=== PATIENT | female | born 1985 | race Caucasian/White ===

== ENCOUNTER → 2017-03-07 | Outpatient (CLI) | payer BC ==
[~2017-03-07] MED LIST: ACET-1256 PO; ALBU1AER9 INH; BUSP-8 PO; CHOL1TAB46 PO; CLON1TAB3 PO; CYAN500S5 SC; FENT25DI2 TD; FLUO20CA35 PO; FURO-85 PO; HYDR25TA4 PO; LEVO150T9 PO; MAGN500T4 PO; METO100T14 PO; MICO1POW TOP; MICO2CRE48 TOP; OXYC20TA32 PO; TIZA1CAP2 PO; ZNTT/150 PO; [UNRECOGNIZED DRUG - CODE] PO
--- NOTE | 2017-03-07 10:29 | DIAGNOSTIC IMAGING REPORT ---
ABDOMEN COMPLETE (US) CLINICAL HISTORY: LEUKOCYTOSIS COMPARISON STUDY: CT scan dated 07/11/2012 FINDINGS: The pancreas appears sonographically normal. The gallbladder is surgically absent. There is increased hepatic echogenicity, most likely secondary to hepatic steatosis. No focal hepatic masses are visualized. There is no ductal dilatation. The common bile duct measures 5 mm. The spleen is mildly enlarged measuring 13 cm. The right kidney measures 11.4 cm in length. The left kidney measures 13.2 cm in length. No focal renal masses are visualized. There is no hydronephrosis. No abnormalities of the aorta are visualized. No abnormalities of the IVC are visualized. In the left lower quadrant, there are equivocal areas of bowel wall thickening. IMPRESSION: 1. Surgically absent gallbladder 2. Mild splenomegaly 3. Suspected hepatic steatosis 4. Equivocal areas of bowel wall thickening within the left lower quadrant. Electronically signed by: Sadiq Lee M.D. 03/07/2017 10:27 AM Dictated Date/Time: 03/07/2017 10:22 AM
== END | disposition home or self-care (01) ==
LOC: C.ULTR 09:47
PROVIDERS: ATTEND Internal Medicine Hematology & Oncology
DX: D72.829 Elevated white blood cell count, unspecified (principal); Z90.49 Acquired absence of other specified parts of digestive tract

== ENCOUNTER 2018-01-19 14:15 | Emergency (ER) | payer BC, OTHER ==
[~2018-01-19] VITALS: Ht 170.2 cm; Wt 142.0 kg
[~2018-01-19 14:15] MED LIST changes: -ACET-1256 PO; -CHOL1TAB46 PO; -CLON1TAB3 PO; -CYAN500S5 SC; -FLUO20CA35 PO; -HYDR25TA4 PO; -MAGN500T4 PO; +RANI150T85 PO; -ZNTT/150 PO
[2018-01-19 14:18] VITALS: TEMP 36.6; Ht 170.2 cm; Wt 142.0 kg
[2018-01-19] MEDS ORDERED: METHYLPREDNISOLONE 125 MG VIAL IV STA (15:10)
[2018-01-19] MEDS ORDERED: PROCHLORPERAZINE 5 MG/ML 2 ML VIAL IV STA (15:10)
[2018-01-19] MEDS: DiphenhydrAMINE HCL 50 MG/ML VIAL IV STA ×2 (15:10→15:48)
[2018-01-19] MEDS ORDERED: ONDANSETRON INJ 2 MG/ML 2 ML VIAL IV STA (15:10)
[2018-01-19] MEDS ORDERED: SODIUM CHLORIDE 0.9% 1000ML 1,000 ML IV STA (15:10)
[2018-01-19] MEDS ORDERED: CLON1TAB3 PO (15:45)
[2018-01-19] MEDS ORDERED: ACET-1256 PO (15:45)
[2018-01-19] MEDS ORDERED: FLUO20CA35 PO (15:45)
[2018-01-19] MEDS ORDERED: HYDR25TA4 PO (15:45)
[2018-01-19] MEDS ORDERED: CYAN500S5 PO (15:50)
[2018-01-19] MEDS ORDERED: CHOL1TAB46 PO (15:50)
[2018-01-19] MEDS ORDERED: MAGN500T4 PO (15:52)
[2018-01-19 15:59] LABS: BASO % 0.1 %; BASO ABS # 0.02 K/uL (0-0.2); EOS % 0.7 %; EOS ABS # 0.09 K/uL (0-0.5); HEMATOCRIT 41.5 % (37-47); HEMOGLOBIN 14.3 g/dL (12.0-16.0); IG# 0.06 K/uL (0.00-0.02); LYMPH % 29.6 %; LYMPH ABS # 3.99 K/uL (1.2-3.4); MEAN CELL VOLUME 88.9 fL (80-100); MEAN CORPUSCULAR HEMOGLOBIN 30.6 pg (25-34); MEAN CORPUSCULAR HGB CONC 34.5 g/dl (32-36); MEAN PLATELET VOLUME 9.4 fL (7.4-10.4); MONO % 5.5 %; MONO ABS # 0.74 K/uL (0.11-0.59); NEUT % 63.7 %; NEUT ABS # 8.57 K/uL (1.4-6.5); PLATELET COUNT 408 K/uL (130-400); RED CELL DISTRIBUTION WIDTH CV 13.2 % (11.5-14.5); RED CELL DISTRIBUTION WIDTH SD 42.8 fL (36.4-46.3); WHITE BLOOD COUNT 13.47 K/uL (4.8-10.8)
[2018-01-19] MEDS ORDERED: TRAM-10 PO (16:09)
[2018-01-19] MEDS ORDERED: MECL1TAB40 PO (16:09)
[2018-01-19] MEDS ORDERED: Cranberry PO (16:09)
[2018-01-19] MEDS ORDERED: RIZA5TAB10 PO (16:09)
[2018-01-19] MEDS ORDERED: NYSTCRE32 TOP (16:09)
[2018-01-19] MEDS ORDERED: LEVO112T4 PO (16:09)
[2018-01-19] MEDS ORDERED: ALBU18002 INH (16:09)
[2018-01-19] MEDS ORDERED: METO25TA56 PO (16:09)
[2018-01-19] MEDS ORDERED: CALC600T PO (16:09)
[2018-01-19] MEDS ORDERED: MISCCAP80 PO (16:09)
[2018-01-19] MEDS ORDERED: ACT15 PO (16:09)
[2018-01-19 16:21] LABS: CALCIUM 9.6 mg/dl (8.5-10.1); CREATININE 0.98 mg/dl (0.60-1.20); POTASSIUM 3.3 mmol/L (3.5-5.1)
[2018-01-19 16:23] LABS: TOTAL PROTEIN 8.8 gm/dl (6.4-8.2)
[2018-01-19] MEDS ORDERED: LORAZEPAM 2 MG/ML 1 ML VIAL IV STA (17:00)
--- NOTE | 2018-01-19 17:02 | EMERGENCY ROOM VISIT NOTE ---
ED Visit Note First contact with patient: 14:27 CHIEF COMPLAINT: Migraine headache 3 days HISTORY OF PRESENT ILLNESS: Patient is a 32-year-old white female with past medical history significant for migraines, among many other medical problems, who presents emergency department company by her for evaluation of a migraine 3 days. She reports a severe right-sided migraine with associated photo and phonophobia, nausea without vomiting and diarrhea. She states the pain radiates down her spine. She has tried her Maxalt and is on amitriptyline prophylactically without relief of her symptoms. She states the pain is progressively worsened, and she presently rates it an 8/10. She has a long- standing history of migraine headaches, and has been evaluated by neurology. Prior imaging studies including CT scans and MRIs have been normal. She has a history of anxiety and states that she has become a bit more anxious due to the pain and the duration of the migraine. She has IBS and reports nausea and diarrhea. She has not vomited, but does admit to poor oral intake. The patient has not been ill recently with any cold or upper respiratory symptoms or fever or chills. She denies any difficulty with balance, speech or coordination. No numbness, tingling or weakness of the extremities. No recent trauma to the head. She has a history of chronic neck and low back pain. This is not the worst migraine that she has ever experienced, but she does note that she has never had to go to the emergency department for migraine relief previously.. REVIEW OF SYSTEMS: Review of systems as per HPI. All other systems reviewed were negative. 10 systems reviewed. PMH: Electronic medical records are reviewed and summarized as above/below. See Problem List. SOCIAL HISTORY: Patient lives at home with her spouse. She is employed. Non- smoker. PHYSICAL EXAM: Vital Signs: Reviewed Nurse's notes. General Appearance: Patient is an uncomfortable appearing tearful, 32-year-old female who is awake and alert and laying in a darkened room with sunglasses on. Eyes: Pupils equal round reactive to light extraocular muscles are intact, no proptosis, mild photophobia ENT: Oropharynx is clear, mucous membranes are moist, tympanic membranes are clear bilaterally, no sinus or dental tenderness Neck: Supple, no cervical lymphadenopathy, no meningismus Heart: Regular rate and rhythm, S1 and S2 Lungs: Clear to auscultation bilaterally, no wheezes Rales or rhonchi, no increased work of breathing Abdomen: Soft nontender nondistended. Normal active bowel sounds. No rebound. No guarding. Back: No midline tenderness to palpation. : No CVA tenderness to palpation. Skin: Warm, no diaphoresis, no rashes. Extremities: No cyanosis, clubbing, or edema Neurologic: Patient is awake alert, and oriented x 3. Cranial nerves 2-12 are grossly intact. Motor 5 out of 5 strength bilateral upper extremities and lower extremities. No gross sensory deficits. Reflexes are 2+ throughout. EMERGENCY DEPARTMENT COURSE: The patient was seen and assessed as above. Her old records were reviewed. IV lock was initiated and laboratory studies were collected. She was medicated with a liter bolus of normal saline solution, Zofran 4 mg IV, Benadryl 50 mg IV, Compazine 10 mg IV, Solu-Medrol 125 mg IV. CBC with differential, CMP, Urine dip and test were collected. Laboratory studies noted a slightly elevated white count at 13,400, the patient does have a history of leukocytosis which has been evaluated by hematology. Electrolytes revealed a sodium of 135 and a potassium of 3.3, otherwise are unremarkable. Renal function is normal. LFTs are not elevated. Urine dip was clear and test was negative. On reassessment, the patient reported that her headache had improved, she rated it a 6/10, and states that this was manageable for her at home. She did report that she was feeling a little bit jittery and anxious, she suspected from the Benadryl. She was given Ativan 1 g IV. Supportive care measures discussed. The patient has a long-standing history of migraines and states that this feels similar. It is not the worst headache of her life. She has a benign neurologic exam. She does not have any findings to suspect meningitis or encephalitis. She is feeling improved with the IV hydration and medications. It was not felt that any neuroimaging was indicated at this time. She was encouraged to rest at home and continue her regular medications. The patient rated her headache a 5/10 at discharge. Her was driving. Differential includes: acute intracranial bleed, meningitis, encephalitis, mass or mass effect, sinusitis, infection, migraine, tumor, headache, temporal arteritis and carbon monoxide exposure. Medication reconciliation: I attest that I have personally reviewed the patient' s current medication list. Blood pressure screening: Patient was found to have a slightly elevated blood pressure due to circumstances, which did improve with analgesia. The patient is treated for hypertension. Patient was reviewed in the [facility] Prescription Drug Monitoring Program, she receives regular tramadol and clonazepam prescriptions. Problem List Medical Problems: (1) Asthma, Unspecified Status: Chronic (2) Depressive Disorder Nec Status: Chronic (3) Esophageal Reflux Status: Chronic (4) Fibromyalgia Status: Chronic (5) Head injury Status: Resolved (6) Hypertension Status: Chronic (7) Irritable Bowel Syndrome Status: Chronic (8) Lumbago Status: Chronic (9) Migraine Status: Chronic (10) Morbid Obesity Status: Chronic (11) Neck pain Status: Resolved (12) Orthostatic hypotension Status: Resolved (13) Panic Disorder Without Agoraphobia Status: Chronic (14) Pneumonia Status: Resolved (15) Polycystic Ovaries Status: Chronic (16) Syncope Status: Resolved Surgical Problems: (1) History of tonsillectomy Status: Resolved (2) Hx of cholecystectomy Status: Resolved Current/Historical Medications Scheduled Calcium Carbonate (Calcium 600), 600 MG PO BID Cholecalciferol (Vitamin D3), 5,000 INTER.UNIT PO DAILY Cyanocobalamin (Vitamin B-12), 500 MCG PO DAILY Fluoxetine (Prozac), 40 MG PO DAILY Hydrochlorothiazide (Hctz), 25 MG PO DAILY Levothyroxine Sodium (Levothyroxine Sodium), 112 MCG PO DAILY Magnesium Oxide (Mg Supplement (Magnesium), 500 MG PO DAILY Metoprolol Tartrate (Lopressor) (Lopressor), 12.5 MG PO BID Pioglitazone (Actos), 15 MG PO DAILY Probiotic Product (Probiotic), 1 CAP PO BID Ranitidine (Zantac), 150 MG PO BID [Cranberry], 25,000 UNITS PO DAILY Scheduled PRN Acetaminophen (Tylenol), 1,000 MG PO BID PRN for Pain Albuterol Sulfate (Proair Respiclick), 2 PUFFS INH QID PRN for SOB/Wheezing Clonazepam (Klonopin), 1 MG PO TID PRN for Anxiety Meclizine Hcl (Meclizine Hcl), 12.5 MG PO TID PRN for Dizziness or Vertigo Nystatin-Triamcinolone (Nystatin/Triamcinolone), 1 APPLN TOP UD PRN for Skin Inflammation Rizatriptan Benzoate (Maxalt), 5 MG PO UD PRN for Migraine Tizanidine Hcl (Tizanidine Hcl), 4 MG PO Q8 PRN for Migraine Tramadol (Ultram), 50 MG PO Q6H PRN for Back Pain Allergies Coded Allergies: Iodine (Verified Allergy, Severe, RESPIRATORY DISTRESS, 02/05/15) Latex (Verified Allergy, Intermediate, BLISTERS, 02/05/15) Penicillins (Verified Allergy, Mild, HIVES/RASH, 01/20/16) Sulfa Drugs (Verified Allergy, Mild, RASH, 02/05/15) Cefuroxime (Verified Allergy, Unknown, ITCHING, RASH, 02/05/15) Uncoded Allergies: CT CONTRAST (Allergy, Mild, ANAPHYLAXIS, 02/05/15) Vital Signs Date Time Temp Pulse Resp B/P (MAP) Pulse Ox O2 Delivery O2 Flow Rate FiO2 01/19/18 17:23 72 18 132/64 98 Room Air 01/19/18 15:46 73 18 149/90 98 Room Air 01/19/18 14:18 36.6 72 18 195/102 97 Laboratory Results 01/19/18 15:43 Red Blood Count 4.67, Mean Corpuscular Volume 88.9, Mean Corpuscular Hemoglobin 30.6, Mean Corpuscular Hemoglobin Concent 34.5, Mean Platelet Volume 9.4, Neutrophils (%) (Auto) 63.7, Lymphocytes (%) (Auto) 29.6, Monocytes (%) (Auto) 5.5, Eosinophils (%) (Auto) 0.7, Basophils (%) (Auto) 0.1, Neutrophils # (Auto) 8.57, Lymphocytes # (Auto) 3.99, Monocytes # (Auto) 0.74, Eosinophils # (Auto) 0.09, Basophils # (Auto) 0.02 01/19/18 15:43 Test 01/19/18 15:43 01/19/18 15:50 White Blood Count 13.47 K/uL (4.8-10.8) Red Blood Count 4.67 M/uL (4.2-5.4) Hemoglobin 14.3 g/dL (12.0-16.0) Hematocrit 41.5 % (37-47) Mean Corpuscular Volume 88.9 fL (80-100) Mean Corpuscular Hemoglobin 30.6 pg (25-34) Mean Corpuscular Hemoglobin Concent 34.5 g/dl (32-36) Platelet Count 408 K/uL (130-400) Mean Platelet Volume 9.4 fL (7.4-10.4) Neutrophils (%) (Auto) 63.7 % Lymphocytes (%) (Auto) 29.6 % Monocytes (%) (Auto) 5.5 % Eosinophils (%) (Auto) 0.7 % Basophils (%) (Auto) 0.1 % Neutrophils # (Auto) 8.57 K/uL (1.4-6.5) Lymphocytes # (Auto) 3.99 K/uL (1.2-3.4) Monocytes # (Auto) 0.74 K/uL (0.11-0.59) Eosinophils # (Auto) 0.09 K/uL (0-0.5) Basophils # (Auto) 0.02 K/uL (0-0.2) RDW Standard Deviation 42.8 fL (36.4-46.3) RDW Coefficient of Variation 13.2 % (11.5-14.5) Immature Granulocyte % (Auto) 0.4 % Immature Granulocyte # (Auto) 0.06 K/uL (0.00-0.02) Anion Gap 7.0 mmol/L (3-11) Est Creatinine Clear Calc Drug Dose 120.9 ml/min Estimated GFR () 87.8 Estimated GFR (Non- 75.8 BUN/Creatinine Ratio 8.4 (10-20) Calcium Level 9.6 mg/dl (8.5-10.1) Total Bilirubin 0.5 mg/dl (0.2-1) Aspartate Amino Transf (AST/SGOT) 10 U/L (15-37) Alanine Aminotransferase (ALT/SGPT) 27 U/L (12-78) Alkaline Phosphatase 85 U/L (45-117) Total Protein 8.8 gm/dl (6.4-8.2) Albumin 4.0 gm/dl (3.4-5.0) Globulin 4.8 gm/dl (2.5-4.0) Albumin/Globulin Ratio 0.8 (0.9-2) Urine Test NEG (NEG) Medications Administered Medications (Trade) Dose Ordered Sig/Claudia Route Start Time Stop Time Status Last Admin Dose Admin Sodium Chloride 1,000 ml @ 999 mls/hr Q1H1M STAT IV 01/19/18 15:10 01/19/18 16:10 DC 01/19/18 15:42 999 MLS/HR Methylprednisolone Sodium Succinate (Solu-Medrol IV) 125 mg NOW STAT IV 01/19/18 15:10 01/19/18 15:11 DC 01/19/18 15:42 125 MG Diphenhydramine HCl (Benadryl Inj) 50 mg NOW STAT IV 01/19/18 15:10 01/19/18 15:11 DC 01/19/18 15:48 50 MG Prochlorperazine Edisylate (Compazine Inj) 10 mg NOW STAT IV 01/19/18 15:10 01/19/18 15:11 DC 01/19/18 15:43 10 MG Ondansetron HCl (Zofran Inj) 4 mg NOW STAT IV 01/19/18 15:10 01/19/18 15:11 DC 01/19/18 15:42 4 MG Lorazepam (Ativan Inj) 1 mg NOW STAT IV 01/19/18 17:00 01/19/18 17:01 DC 01/19/18 17:22 1 MG Departure Information Impression Primary Impression: Migraine Referrals Kristi Young (PCP) Patient Instructions My [facility] Additional Instructions DO NOT drive, drink alcohol, operate machinery, or perform dangerous activities today. You were given medications in the ER that can affect your ability to safely function or operate a vehicle. Rest today in a quiet, peaceful, dark environment and get a full 8-10 hrs of sleep tonight. Avoid loud noises, smoke/smoking, alcohol, bright lights, stress, or physical exertion today to minimize the chance the headache may return. Continue current medications. Return to the ER for passing out, worsening headache, vision problems, neck stiffness/pain, fevers, vomiting, worsening of your condition, or as needed. Follow up with your primary physician in 2-3 days for a recheck of your current condition.
[2018-01-19 17:23] VITALS: BP 132/64; PULSE 72; O2SAT 98
== END 2018-01-19 17:49 | disposition home or self-care (01) ==
LOC: C.EDB 14:16
DX: G43.909 Migraine, unspecified, not intractable, without status migrainosus (principal); M54.5 Low back pain; G89.29 Other chronic pain; J45.909 Unspecified asthma, uncomplicated; F32.9 Major depressive disorder, single episode, unspecified; K21.9 Gastro-esophageal reflux disease without esophagitis; M79.7 Fibromyalgia; I10 Essential (primary) hypertension; K58.9 Irritable bowel syndrome, unspecified; E66.01 Morbid (severe) obesity due to excess calories; F41.0 Panic disorder [episodic paroxysmal anxiety]; Z87.01 Personal history of pneumonia (recurrent); E28.2 Polycystic ovarian syndrome; Z79.899 Other long term (current) drug therapy; Z88.0 Allergy status to penicillin; Z88.2 Allergy status to sulfonamides; Z88.1 Allergy status to other antibiotic agents; Z91.040 Latex allergy status